=== PATIENT | female | born 1985 | race African-American/Black ===

== ENCOUNTER 2025-01-09 00:05 | Emergency (ER) | payer SELFPAY ==
[~2025-01-09] VITALS: Ht 172.7 cm; Wt 77.8 kg
[2025-01-09 00:27] VITALS: O2SAT 98
[2025-01-09 01:27] LABS: BASOPHILS % 1.1 % (0.0-2.0); DIFFERENTIAL COMMENT 0; HEMATOCRIT. 25.7 % (36.0-48.0); LYMPHOCYTES % 31.2 % (20.0-50.0); MEAN CORPUSCULAR HEMOGLOBIN 22.8 pg (28.0-32.0); MEAN CORPUSCULAR HGB CONC 31.3 g/dL (31.0-37.0); MEAN CORPUSCULAR VOLUME 72.9 fL (81.0-99.0); MEAN PLATELET VOLUME 6.8 fl (7.4-10.4); MONOCYTES % 6.7 % (2.0-8.0); PLATELET 395 x1000/uL (130-400); RED BLOOD CELL COUNT 3.52 mill/uL (4.2-5.4); RED CELL DISTRIBUTION WIDTH 20.9 % (11.6-14.6); WHITE BLOOD COUNT 8.3 x1000/uL (4.5-11.0)
[2025-01-09 01:47] LABS: CHLORIDE 105 mEq/L (98-107); POTASSIUM 3.5 mEq/L (3.5-5.1); SODIUM 137 mEq/L (136-145)
[2025-01-09 01:48] LABS: CARBON DIOXIDE 23 mEq/L (21-32)
[2025-01-09 01:49] LABS: CALCIUM 9.2 mg/dL (8.7-10.4)
[2025-01-09 01:53] LABS: CREATININE 0.7 mg/dL (0.6-1.0)
[2025-01-09 01:54] LABS: GLUCOSE 86 mg/dL (70-105); UREA NITROGEN BLOOD 13 mg/dL (9-23)
[2025-01-09 02:35] LABS: TROPONIN I HIGH SENSITIVITY < 4 ng/L (3.0-34)
[2025-01-09] MEDS ORDERED: FERR325T6 MT (03:51)
[2025-01-09 04:09] VITALS: BP 106/77; PULSE 83; RESP 14; TEMP 36.5; O2SAT 100
== END 2025-01-09 04:09 | disposition home or self-care (01) ==
LOC: ER 00:05
DX: R07.89 Other chest pain (principal); R06.02 Shortness of breath; D64.9 Anemia, unspecified; Z98.890 Other specified postprocedural states; Z79.899 Other long term (current) drug therapy
CPT/HCPCS: 36415; 71045; 80048; 84484; 85025; 93005; 99285